=== PATIENT | male | born 1950 | race Caucasian/White ===

== ENCOUNTER 2016-10-11 06:35 | Inpatient (IN) ==
[2016-10-08 14:44] LABS: Basophils # (Auto) 0 K/mcL (0.0-0.3); Basophils % (Auto) 0.3 % (0.0-2.0); Eosinophils # (Auto) 0.1 K/mcL (0.0-0.7); Eosinophils % (Auto) 1.7 % (0.0-7.0); Granulocytes % (Auto) 57.4 % (38.0-78.0); Lymphocytes # (Auto) 1.6 K/mcL (1.5-4.8); Lymphocytes % (Auto) 32.3 % (15.5-49.0); Mean Cell Volume 96.5 fL (80.0-100.0); Mean Corpuscular Hemoglobin 32.8 pg (26.0-34.0); Monocytes # (Auto) 0.4 K/mcL (0.1-0.9); Monocytes % (Auto) 8.3 % (1.0-12.0); Platelet Count 210 K/mcL (140-440); RBC 4.26 M/mcL (4.50-5.90); Red Cell Distribution Width 13.8 % (11.5-14.5)
[2016-10-08 14:56] LABS: Appearance,Urine CLEAR; Bilirubin,Urine NEG (NEG); Color,Urine YELLOW; Glucose,Urine (UA) NEGATIVE (NEG); Leukocyte Esterase,Urine NEG /uL (NEG); Nitrate,Urine NEG (NEG); Protein,Urine NEG (NEG); Specific Gravity,Urine 1.018 (1.000-1.035); Urine Blood NEG mg/dL (<0.03); Urobilinogen,Urine NEG (NEG)
[2016-10-08 14:59] LABS: Blood Urea Nitrogen 9 mg/dl (8-23)
[2016-10-11] MEDS ORDERED: oxyCODONE 10 MG TAB.ER.12H PO SCH (07:00)
[2016-10-11] MEDS ORDERED: ceFAZolin 1 GM VIAL IV SCH (07:00)
[2016-10-11] MEDS ORDERED: CELECOXIB 200 MG CAPSULE PO SCH (07:00)
[2016-10-11] MEDS ORDERED: PREGABALIN 150 MG CAPSULE PO SCH (07:00)
[2016-10-11] MEDS ORDERED: ACETAMINOPHEN 500 MG TABLET PO SCH (07:00)
[2016-10-11] MEDS ORDERED: fentaNYL 250 MCG/5 ML VIAL IV ONE (09:15)
[2016-10-11] MEDS ORDERED: MIDAZOLAM 2 MG/2 ML VIAL IV ONE (09:15)
[2016-10-11] MEDS ORDERED: SUCCINYLCHOLINE 20 MG/ML ML IV ONE (09:15)
[2016-10-11] MEDS ORDERED: GLYCOPYRROLATE 0.2 MG/ML VIAL IV ONE (09:15)
[2016-10-11] MEDS ORDERED: HETASTARCH 6% 500 ML BAG IV ONE (09:15)
[2016-10-11] MEDS ORDERED: LIDOCAINE HCL/PF 100 MG/5 ML SYRINGE IV ONE (09:15)
[2016-10-11] MEDS ORDERED: ONDANSETRON 4 MG/2 ML VIAL IV ONE (09:15)
[2016-10-11] MEDS ORDERED: TRANEXAMIC ACID 1,000 MG/10 ML VIAL IV ONE (09:15)
[2016-10-11] MEDS ORDERED: ePHEDrine 50 MG/ML AMPUL IV ONE (09:15)
[2016-10-11] MEDS ORDERED: DEXAMETHASONE 10 MG/ML VIAL IV ONE (09:15)
[2016-10-11] MEDS ORDERED: PROPOFOL 200 MG/20 ML VIAL IV ONE (09:15)
[2016-10-11] MEDS ORDERED: ePHEDrine 50 MG/ML AMPUL IV PRN (10:26)
[2016-10-11] MEDS ORDERED: METHOCARBAMOL 1,000 MG/10 ML VIAL IV PRN (10:26)
[2016-10-11] MEDS ORDERED: ONDANSETRON 4 MG/2 ML VIAL IV PRN ×2 (10:26→10:52)
[2016-10-11] MEDS ORDERED: diphenhydrAMINE 50 MG/ML VIAL IV PRN (10:26)
[2016-10-11] MEDS ORDERED: NALOXONE HCL 0.4 MG/ML VIAL IV PRN (10:26)
[2016-10-11] MEDS ORDERED: METOPROLOL TARTRATE 5 MG/5 ML VIAL IV PRN (10:26)
[2016-10-11] MEDS ORDERED: ATROPINE SULFATE 0.4 MG/ML VIAL IV PRN (10:26)
[2016-10-11] MEDS ORDERED: fentaNYL 100 MCG/2 ML VIAL IV PRN (10:26)
[2016-10-11] MEDS ORDERED: PROMETHAZINE 25 MG/ML VIAL IV PRN (10:26)
[2016-10-11] MEDS ORDERED: BENZOCAINE/MENTHOL 1 LOZENGE PO PRN ×2 (10:26→10:52)
[2016-10-11] MEDS ORDERED: IPRATROPIUM/ALBUTEROL 3 ML AMPUL.NEB NEB PRN (10:26)
[2016-10-11] MEDS ORDERED: MEPERIDINE 25 MG/ML SYRINGE IV PRN (10:26)
[2016-10-11] MEDS ORDERED: FLUMAZENIL 0.1 MG/ML ML IV PRN (10:26)
[2016-10-11] MEDS ORDERED: HYDROmorphone 2 MG/ML SYRINGE IV PRN ×2 (10:26→10:52)
[2016-10-11] MEDS ORDERED: LACTATED RINGERS 1,000 ML IV SCH (10:30)
[2016-10-11] MEDS ORDERED: GENTAMICIN SULFATE 800 MG/20 ML VIAL IR ONE (10:37)
--- NOTE | 2016-10-11 10:51 | Brief Operative Note ---
Date of procedure: 10/11/16 Pre-op diagnosis: right hip djd Procedure: right hip djd Grafts/Implants: Yes Anesthesia: GETA Complications Description: 10/11/16 10:51 1000cc blood loss Surgeon: Román [facility] Manager: Salbador Ho Estimated blood loss (cc): 1,000 Specimens Removed/Pathology: none sent Condition: stable Disposition: PACU
[2016-10-11] MEDS ORDERED: HYDROcodone/APAP 10/325MG TABLET PO PRN (10:52)
[2016-10-11] MEDS ORDERED: FLEETS ADULT ENEMA PR PRN (10:52)
[2016-10-11] MEDS ORDERED: MAGNESIUM HYDROXIDE 30 ML ORAL.SUSP PO PRN (10:52)
[2016-10-11] MEDS ORDERED: TRANEXAMIC ACID 1,000 MG/10 ML VIAL IV SCH (10:52)
[2016-10-11] MEDS ORDERED: BISACODYL 10 MG SUPP.RECT PR PRN (10:52)
[2016-10-11] MEDS ORDERED: POLYETHYLENE GLYCOL 3350 17 GM PACKET PO PRN (10:52)
[2016-10-11] MEDS ORDERED: ACETAMINOPHEN 325 MG TABLET PO PRN (10:52)
--- NOTE | 2016-10-11 11:06 | XRay Report ---
CLINICAL INFORMATION: Reason for Exam:RIGHT TOTAL HIP ARTHROPLASTY, POSTERIOR COMPARISON: None. FINDINGS: ] Right hip prostheses is in near-anatomic alignment. Soft tissues swelling seen - as expected. No osseous abnormality. IMPRESSION: Negative Interpreted and Authenticated by: Andrea Martinez 10/11/16
--- NOTE | 2016-10-11 11:17 | Operative Note ---
DATE OF OPERATION: 10/11/2016 PREOPERATIVE DIAGNOSIS: Right hip degenerative arthritis. POSTOPERATIVE DIAGNOSIS: Right hip degenerative arthritis. PROCEDURE: Right total hip arthroplasty using cementless Rachell components. SURGEON: Román Hope MD [employer] AND GRADER: Salbador Ho PA-C ANESTHESIA: General LMA anesthesia. COMPLICATIONS: None. ESTIMATED BLOOD LOSS: About 1000 mL. No blood products were given. IMPLANTS: size 7 femoral stem cementless with a 58 acetabular cup with a dual mobility liner and neutral neck length. DESCRIPTION OF PROCEDURE: The patient was brought to the operating room and put supine on the operating table. Once asleep, the patient had the right hip sterilely prepped and draped in the usual sterile fashion. Once this was done, we then confirmed the operative site. Preop antibiotics were given, tranexamic acid given. We made a posterior superior approach and exposed the superior approaching capsule. We released the posterior capsule and piriformis obturator internus and dislocated the hip and made our neck cut at 36 mm in length. Once this was done, we subluxed the hip anteriorly, reamed up to the size 57 and implanted a 58 cementless cup, 40 degrees of inclination and 20 degrees of version and placed a dual mobility liner and a manhole cover. Once this was done, we removed osteophytes anteriorly-they were quite large. The posterior circumflex artery was bleeding. This was bovied. Once this was done, we irrigated thoroughly and broached up to the size 6, trialed the size 6 and took an x-ray. This seemed to be a little small size. We then went to a size 7. Leg lengths were symmetric within a mm according to the x-ray. We irrigated thoroughly and implanted a size 7 stem with a neutral neck length, dual mobility ball was reduced into the hip. Other than 1000 mL of blood loss, no significant bleeding at the end of the case. We repaired the capsule with #2 Ethibond, closed the fascial layer with 0 Vicryl and closed the skin with 2-0 Vicryl and adhesive closure. The patient tolerated this well without complication. RBH:yesy Job ID: [id number] Doc ID: [id number] Román Hope MD
--- NOTE | 2016-10-11 11:35 | XRay Report ---
CLINICAL INFORMATION: Postop total hip prostheses COMPARISON: None. FINDINGS: ] Right hip prostheses is in near-anatomic alignment. No osseous abnormality. Soft tissue swelling and gas seen as expected IMPRESSION: Negative Interpreted and Authenticated by: Andrea Martinez 10/11/16
[2016-10-11] MEDS: 0.45 % SODIUM CHLORIDE 1,000 ML IV SCH ×2 (12:02→22:17)
[2016-10-11] MEDS: 0.9 % SODIUM CHLORIDE 10 ML SYRINGE IV SCH ×2 (12:03→22:52)
[2016-10-11] MEDS: KETOROLAC 15 MG/ML VIAL IV PRN ×2 (12:10→21:09)
[2016-10-11] MEDS: ceFAZolin 1 GM VIAL IV SCH (17:36)
[2016-10-11] MEDS: ASPIRIN 325 MG ENTERIC COATED TABLET PO SCH (20:50)
[2016-10-11] MEDS: DOCUSATE SODIUM 100 MG CAPSULE PO SCH (20:50)
[2016-10-11] MEDS ORDERED: SENNOSIDES 1 TABLET PO SCH (21:00)
[2016-10-11] MEDS ORDERED: TEMAZEPAM 15 MG CAPSULE PO PRN (21:00)
[2016-10-12] MEDS: ceFAZolin 1 GM VIAL IV SCH (00:30)
[2016-10-12] MEDS: KETOROLAC 15 MG/ML VIAL IV PRN (04:00)
[2016-10-12] MEDS: 0.9 % SODIUM CHLORIDE 10 ML SYRINGE IV SCH (05:17)
[2016-10-12] MEDS: 0.45 % SODIUM CHLORIDE 1,000 ML IV SCH (07:43)
--- NOTE | 2016-10-12 09:16 | Orthopedic Progress Note ---
Subjective Patient information: Note initiated : 10/12/16 at 9:15 am Service Date, if different from initiated Date: [] Patient: Barrie Rivera 65 y/o M admitted on 10/11/16 for Right Total Hip Arthroplasty. 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] Objective Vital signs: Vital Signs Temp Pulse Pulse Resp BP BP Pulse Ox 10/12/16 08:00 98.1 F 72 16 96/53 93 10/12/16 05:46 97 10/12/16 04:00 98.2 F 49 L 16 99/49 96 10/12/16 01:19 96 10/12/16 00:00 99.0 F 54 L 16 107/50 93/48 97 10/11/16 22:00 97 10/11/16 20:00 98.2 F 55 L 16 108/56 96 10/11/16 17:35 95 10/11/16 16:00 97.8 F 54 L 16 113/61 96 10/11/16 14:00 49 L 16 124/66 98 10/11/16 13:30 41 L 16 123/65 10/11/16 13:00 40 L 16 122/65 10/11/16 12:52 96 10/11/16 12:45 48 L 20 127/69 98 10/11/16 12:30 52 L 16 131/69 1 L 10/11/16 12:15 51 L 98 10/11/16 12:00 96.0 F L 51 L 16 112/64 98 10/11/16 11:43 97.9 F 47 L 12 111/57 96 10/11/16 11:30 46 L 15 113/60 96 10/11/16 11:15 56 L 13 110/57 98 10/11/16 11:02 97.2 F L 56 L 10 L 105/50 98 10/11/16 10:52 98 Intake and Output 10/11/16 10/12/16 10/12/16 21:59 05:59 13:59 Intake Total 700 / 700 1625 / 1625 Output Total 1350 / 1350 Balance -650 / -650 1625 / 1625 Intake: IV 1000 / 1000 Sodium Chloride 0.45% 1, 1000 / 1000 000 ml @ 100 mls/hr IV . Q10H ELVIRA Rx#:[id number] Oral 700 / 700 625 / 625 Output: Void Amount 1350 / 1350 Other: Meal Dinner Percent of Meal Consumed 100% Feeding Ability Independent # Voids 2 Weight 208 lb Intake & Output: Intake & Output 10/11/16 10/12/16 10/12/16 21:59 05:59 13:59 Intake Total 700 / 700 1625 / 1625 Output Total 1350 / 1350 Balance -650 / -650 1625 / 1625 Weight 208 lb Intake: IV 1000 / 1000 Sodium Chloride 0.45% 1, 1000 / 1000 000 ml @ 100 mls/hr IV . Q10H ELVIRA Rx#:[id number] Oral 700 / 700 625 / 625 Output: Void Amount 1350 / 1350 Other: Meal Dinner Percent of Meal Consumed 100% Feeding Ability Independent # Voids 2 Incision: Yes healing Incision clean and dry: Yes Dressing: Yes clean Weight bearing status: full Neurological exam IM: Yes oriented X3, Yes neurovascular intact Extremities exam IM: Yes Foot pink and warm (DC HOME TADAY), Yes neurovascular intact - Labs CBC & BMP: 10/12/16 04:07 10/08/16 13:30 Labs: 10/12/16 10/08/16 04:07 13:30 Hgb 14.0 Hct 28.6 L 41.1
--- NOTE | 2016-10-12 09:20 | Discharge Summary ---
Ortho Discharge - [facility] - Patient Instructions Diet: Regular Diet Activity: activity as tolerated, weight bearing as tolerated Total Hip Protocol: Follow activity instructions as provided by Physical Therapy. Dressing Care: Andree Bourgeois - leave on for 5 days Patient Education: Total Hip Replacement (DC) Additional Instructions: Discharge Instructions: Do the exercises at home that physical therapy gave you. Please call FridayOctober 14 to [facility] in [place] and schedule to start your physical therapy as soon as possible.([phone]). We have faxed and left a message for your physical therapy. Take your prescription, photo ID, insurance cards, and current medication list with you to your first physical therapy appointment. Take your prescription to brain picker any medication or equipment (such as walker, crutches, toilet riser or C.P.M.) Wear comfortable clothing for your physical therapy. Weight bearing as tolerated. You have Dermabond (a dressing with a mesh-like appearance), leave open to air. Do not remove this dressing. You may start showering on post op day #2. The Dermabond dressing can get wet, do not scrub dressing. Pat dry. To avoid constipation while taking any narcotic pain medication, take an over the counter stool softener/laxative. Use ice packs as directed, on for 20 minutes at a time throughout the day. This and elevation will help with pain and swelling. Call your physician for fevers above 100.5 or pain not controlled by medication. Your prescriptions are with your discharge information. Some medications were electronically transmitted to your pharmacy of choice. - Follow Up Plan Follow Up Appointments: Román Hope MD [Physician] - 10/24/16 1:40 pm Disposition: Home, Self-Care Prognosis: Good Rehab Potential: Good I certify that the patient requires SNF services: No Overall status at discharge: patient is progressing back to baseline - Orders For Discharge Additional Discharge Orders: Physical Therapy at Discharge - [facility] Location: Determined By Patient Toilet Riser Discharge Order Location: Determined By Patient Walker Location: Determined By Patient
[2016-10-12] MEDS: ASPIRIN 325 MG ENTERIC COATED TABLET PO SCH (09:24)
[2016-10-12] MEDS: DOCUSATE SODIUM 100 MG CAPSULE PO SCH (09:24)
== END 2016-10-12 11:30 | disposition home or self-care (01) | DRG 470 ==
LOC: MEDSUR 06:35
PROVIDERS: ADMIT Orthopaedic Surgery; ATTEND Orthopaedic Surgery